=== PATIENT | male | born 1995 | race Caucasian/White ===

== ENCOUNTER 2021-08-03 09:31 | Emergency (ER) | payer OTHER ==
[2021-08-03 10:37] LABS: RED BLOOD COUNT 4.78 M/UL (4.20-5.50); WHITE BLOOD COUNT 10.6 K/UL (4.5-11.0)
[2021-08-03 10:58] LABS: BUN/CREATININE RATIO 10 (0-10)
== END 2021-08-03 17:10 | disposition short-term general hospital (02) ==
LOC: ER1 09:31
PROVIDERS: Physician Assistant
DX: T43.221A Poisoning by selective serotonin reuptake inhibitors, accidental (unintentional), initial encounter (principal); F32.A Depression, unspecified; F17.210 Nicotine dependence, cigarettes, uncomplicated; Z20.822 Contact with and (suspected) exposure to COVID-19; X58.XXXA Exposure to other specified factors, initial encounter
CPT/HCPCS: 80053; 80307; 82550; 82553; 83874; 84484; 85025; 93005; 99285; G0480; U0002